=== PATIENT | male | born 1945 | race Caucasian/White ===

== ENCOUNTER → 2017-05-15 | Outpatient (CLI) | payer BC ==
--- NOTE | 2017-05-15 11:45 | DIAGNOSTIC IMAGING REPORT ---
CHEST 2 VIEWS ROUTINE CLINICAL HISTORY: Cough, shortness of breath. COMPARISON STUDY: No previous studies for comparison. FINDINGS: The cardiac and mediastinal contours are normal. There is no focal pulmonary consolidation. There is no failure. There are no pleural effusions.[ IMPRESSION: No active disease in the chest. Electronically signed by: Emile Benton M.D. 05/15/2017 11:43 AM Dictated Date/Time: 05/15/2017 11:43 AM
== END | disposition home or self-care (01) ==
LOC: C.RAD1850 09:27
PROVIDERS: ATTEND Nurse Practitioner Family
DX: R06.02 Shortness of breath (principal); R05 Cough; J20.9 Acute bronchitis, unspecified

== ENCOUNTER 2019-07-28 00:19 | Observation (INO) ==
[2019-07-28] MEDS ORDERED: dilTIAZem HCl 5 MG/ML 5 ML VIAL IV STA (00:38)
[2019-07-28] MEDS ORDERED: dilTIAZem HCL 125 MG in DEXTROSE 5% 100 ML IV STA (00:38)
[2019-07-28 00:55] LABS: Basophils # (auto) 0.01 K/uL (0-0.2); Basophils % (auto) 0.2 %; Eosinophils # (auto) 0.12 K/uL (0-0.5); Eosinophils % (auto) 2.2 %; Hematocrit (blood only) 43.3 % (42-52); Hemoglobin 14.3 g/dL (14.0-18.0); Lymphocytes # (auto) 2.06 K/uL (1.2-3.4); Lymphocytes % (auto) 38.6 %; Mean Corpuscular Hemoglobin 29.3 pg (25-34); Mean Corpuscular Volume 88.7 fL (80-100); Mean Platelet Volume 11.3 fL (7.4-10.4); Monocytes # (auto) 0.48 K/uL (0.11-0.59); Neutrophils # (auto) 2.67 K/uL (1.4-6.5); Platelet Count 165 K/uL (130-400); RDW Coefficient of Variation 13.7 % (11.5-14.5); RDW Standard Deviation 44.8 fL (36.4-46.3); Red Blood Count 4.88 M/uL (4.7-6.1); White Blood Count 5.34 K/uL (4.8-10.8)
[2019-07-28 01:13] LABS: Alanine Aminotransferase 28 U/L (12-78); Aspartate Aminotransferase 24 U/L (15-37); BUN Creatinine Ratio 32.8 (10-20); Blood Urea Nitrogen 29 mg/dl (7-18); Calcium 9.5 mg/dl (8.5-10.1); Carbon Dioxide 30 mmol/L (21-32); Chloride 106 mmol/L (98-107); Creatinine Clr Calc Pharmacy 87.2 ml/min; Est GFR (Non-African American) 85.4; Glucose 94 mg/dl (70-99); Potassium 3.7 mmol/L (3.5-5.1); Sodium 141 mmol/L (136-145)
[2019-07-28 01:24] LABS: Albumin Globulin Ratio 1.1 (0.9-2); Alkaline Phosphatase 80 U/L (45-117); Bilirubin,Total 0.4 mg/dl (0.2-1); Globulin 3.8 gm/dl (2.5-4.0); Total Protein 7.8 gm/dl (6.4-8.2); Troponin I < 0.015 ng/ml (0-0.045)
[2019-07-28 01:36] LABS: T4 Free Thyroxine 0.98 ng/dl (0.8-1.6)
[2019-07-28] MEDS ORDERED: SODIUM CHLORIDE 0.9% 500 ML IV ONE (01:40)
[2019-07-28 03:00] LABS: Appearance Urine Clear (Clear); Bilirubin Urine Negative (Negative); Blood Urine Negative (Negative); Color Urine Yellow; Glucose Urine UA Negative (Negative); Ketones Urine Negative (Negative); Leukocyte Esterase Urine Negative (Negative); Nitrite Urine Negative (Negative); Protein Urine Negative (Negative); Specific Gravity Urine 1.012 (1.000-1.030); Urobilinogen Urine Negative (Negative)
--- NOTE | 2019-07-28 03:06 | History & Physical Report ---
Date of Service July 28, 2019 Assessment & Plan (1) Atrial fibrillation with RVR: Patient is a pleasant 73-year-old male with a significant PMH of BPH and hip pain, admitted with new onset A. fib with RVR New afib/RVR -Admit to telemetry -Will convert diltiazem drip to p.o. Cardizem -In light of forthcoming surgery, will consult cardiologyappreciate recommendations. -Echo ordered -We will replete with 40 of PO potassium to obtain a goal K+ of >4.0. -[id number] score of 1 due to age, therefore will add aspirin to daily regimen. However, recommend discussion between day team and patient regarding further anticoagulation, especially in light of upcoming surgery. -Will trend troponins x 24 hours Enlarged prostate -Continue home tamsulosin -Outpatient follow up, consider increasing dose in light of continued symptoms -UA negative. Mild elevation of TSH, normal T4 -Recommend routine outpatient f/u with PCP. Code: Full Dispo: admit to tele DVTP: loveilanx (2) Enlarged prostate: History of Present Illness Chief Complaint: Afib with RVR Primary Care Provider: Oswald Dooley MD Patient is a pleasant 73-year-old male with a significant PMH of BPH and hip pain, who presents with new onset A. fib with RVR. Patient notes he woke up in the middle of the night tonight to urinate and he felt his heart was beating very quickly. He took his pulse and noted that it felt irregular. He woke up his who took a set of vitals and noted that his blood pressure was elevated as was his heart rate. He denies any lightheadedness, dizziness, numbness, tingling, weakness in his limbs, or headache during this episode overnight tonight. He notes he has no history of irregular heart rate in his past, however he notes 2 nights ago when waking up to urinate he felt a similar sensation of palpitations, but after taking some deep breaths he was able to fall back asleep and was not bothered by it. Of note, patient is scheduled for hip surgery in 1 week. He notes that he generally sleeps okay however due to his urinary frequency due to his prostate problems as well as his hip pain he is frequently waking up. He notes he drinks 3 cups of half-caf coffee per day.He notes no change to his diet recently aside from trying to increase the amount of protein he takes--this is just within the last day as his surgeon felt his lab work showed a low protein level. He denies any anemia. He does relay that there is a positive family history of atrial fibrillation in his mother who of a CVA at the age of 79. In the ER, he was found to be in atrial fibrillation with heart rates in the 140s. He was also found to have an elevated BP as high as 188/106. Labwork in the ER found a normal CBC, relatively normal BMP including a potassium level of 3.7, a magnesium level of 2.0, and a relatively elevated BUN of 29. In light of his urinary frequency, a UA was obtained and was normal. He was also noted to have a mildly elevated TSH with a normal free T4. In the ER, he was placed on a Cardizem drip and his heart rate and blood pressure responded well. Allergies Allergy/AdvReac Type Severity Reaction Status Date / Time No Known Allergies Allergy Unverified 07/28/19 01:49 Home Medications Home Medications Medication Instructions Recorded Confirmed Type acetaminophen [Tylenol Extra 1,000 mg PO Q6H PRN 07/28/19 07/28/19 History Strength] cholecalciferol (vitamin D3) 2,000 unit PO DAILY 07/28/19 07/28/19 History [Vitamin D3] docusate sodium [Colace] 100 mg PO BID PRN 07/28/19 07/28/19 History ibuprofen 400 mg PO QID PRN 07/28/19 07/28/19 History naproxen sodium [Aleve] 220 mg PO Q12H PRN 07/28/19 07/28/19 History tamsulosin 0.4 mg PO QAM 07/28/19 07/28/19 History Past Med/Surg History Medical History Enlarged prostate Family History Mother Stroke Atrial fibrillation Other No significant family history Social History Preferred Language: Slovenian Communication Ability: Effective Drama Therapist Required: No Beliefs That Will Affect Care: None Current Living Situation: Spouse Feels Safe at Home: Yes Safety Concerns: Feels Safe At This Time Smoking Status: Never smoker Hx Alcohol Use: Yes Hx Substance Use: No Review of Systems Review of Systems: All systems reviewed & are unremarkable except as noted in HPI & below Constitutional: no fever, no body aches, no fatigue and no weakness Respiratory: no cough and no dyspnea Cardiovascular: + palpitations (Resolved); no chest pain, no dyspnea, no lightheadedness, no syncope and no edema Gastrointestinal: + constipation; no abdominal pain Genitourinary: + urinary frequency, + post-void dribbling and + nocturia Musculoskeletal: + joint pain (Hip pain) Physical Exam Constitutional: WD/WN, vitals as above average body habitus Eyes: PERRL, conjunctivae normal, anicteric sclerae ENMT: external ear and nose normal, oropharynx normal Neck: normal visual inspection Respiratory: normal respiratory effort, lungs clear to auscultation Cardiovascular: Rate/Rhythm: regular rate; + abnormal rhythm (Irreg/irreg) Heart Sounds: no murmur Extremities: no edema Gastrointestinal (Abdomen): normal bowel sounds, soft, nontender, no hepatosplenomegaly Musculoskeletal: no cyanosis or clubbing, extremities motor strength 5/5 Skin: no rashes, warm and dry Neurologic: PERRL, EOMI, accommodation nl, no face palsy, no dysarthria Psychiatric: A+Ox3, euthymic affect Results & Data Vital Signs (Past 12 Hours) Vital Signs Temp Pulse Pulse Resp BP BP Pulse Ox 07/28/19 02:50 89 18 121/81 96 07/28/19 02:07 86 20 132/95 95 07/28/19 01:48 91 H 18 120/76 95 07/28/19 01:26 83 18 126/77 95 07/28/19 01:11 78 18 111/66 96 07/28/19 01:04 90 18 141/77 H 96 07/28/19 00:33 98 07/28/19 00:32 123 H 18 162/114 H 98 07/28/19 00:21 97.9 F 137 H 18 155/87 H 98 Laboratory Results 07/28/19 07/28/19 07/28/19 Range/Units 02:51 00:35 00:35 WBC 5.34 (4.8-10.8) K/uL RBC 4.88 (4.7-6.1) M/uL Hgb 14.3 (14.0-18.0) g/dL Hct 43.3 (42-52) % MCV 88.7 (80-100) fL MCH 29.3 (25-34) pg MCHC 33.0 (32-36) g/dL RDW Std Deviation 44.8 (36.4-46.3) fL RDW Coeff of Amanda 13.7 (11.5-14.5) % Plt Count 165 (130-400) K/uL MPV 11.3 H (7.4-10.4) fL Immature Gran % (Auto) 0.0 % Neut % (Auto) 50.0 % Lymph % (Auto) 38.6 % [place] % (Auto) 9.0 % Eos % (Auto) 2.2 % Baso % (Auto) 0.2 % Immature Gran # (Auto) 0.00 (0.00-0.02) K/uL Neut # (Auto) 2.67 (1.4-6.5) K/uL Lymph # (Auto) 2.06 (1.2-3.4) K/uL [place] # (Auto) 0.48 (0.11-0.59) K/uL Eos # (Auto) 0.12 (0-0.5) K/uL Baso # (Auto) 0.01 (0-0.2) K/uL Sodium 141 (136-145) mmol/L Potassium 3.7 (3.5-5.1) mmol/L Chloride 106 (98-107) mmol/L Carbon Dioxide 30 (21-32) mmol/L Anion Gap 5.0 (3-11) BUN 29 H (7-18) mg/dl Creatinine 0.89 (0.6-1.4) mg/dl Est Cr Clr Drug Dosing 87.2 ml/min Est GFR ( Amer) 99.0 Est GFR (Non-Af Amer) 85.4 BUN/Creatinine Ratio 32.8 H (10-20) Glucose 94 (70-99) mg/dl Calcium 9.5 (8.5-10.1) mg/dl Magnesium 2.0 (1.8-2.4) mg/dl Total Bilirubin 0.4 (0.2-1) mg/dl AST 24 (15-37) U/L ALT 28 (12-78) U/L Alkaline Phosphatase 80 (45-117) U/L Troponin I < 0.015 (0-0.045) ng/ml Total Protein 7.8 (6.4-8.2) gm/dl Albumin 4.0 (3.4-5.0) gm/dl Globulin 3.8 (2.5-4.0) gm/dl Albumin/Globulin Ratio 1.1 (0.9-2) TSH 4.980 H (0.300-4.500) uIu/ml Free T4 0.98 (0.8-1.6) ng/dl Urine Color Yellow Urine Appearance Clear (Clear) Urine pH 8.0 H (4.5-7.5) Ur Specific [place] 1.012 (1.000-1.030) Urine Protein Negative (Negative) Urine Glucose (UA) Negative (Negative) Urine Ketones Negative (Negative) Urine Blood Negative (Negative) Urine Nitrite Negative (Negative) Urine Bilirubin Negative (Negative) Urine Urobilinogen Negative (Negative) Ur Leukocyte Esterase Negative (Negative) Code Status & VTE Plan Code Status Full VTE Prophylaxis Plan VTE Prophylaxis will be ordered: Yes Supervising Physician Co-Signing Physician Notes Attending addendum: I have physically seen this patient, have supervised the medical residents activities, and agree with the H&P unless as otherwise noted. Assessment and Plan: New onset atrial fibrillation with rapid ventricular response- The patient will be admitted to telemetry for serial cardiac enzymes, serial EKG's, cardiac rhythm monitoring and a 2-D echocardiogram with Dopplers. Given diltiazem 5 mg IV, and then started on diltiazem drip at 5 mg/h by ED. Try to pattern changer to oral Cardizem. Potassium 3.7 upon admission, will optimize with 40 mEq KCL po. Family history significant for mother having atrial fibrillation, and later had a CVA in her late 70s. Low risk for stroke based on scoring, and would likely be a long-term aspirin candidate. Patient is due to undergo total hip arthroplasty at [facility] in 1 week. Complete preoperative assessment with cardiology consultation today. Remaining orders and notations as noted. Resident Activity Tracking Resident Involvement: Resident Care Provided Care Provided: [facility] Medicine
[2019-07-28] MEDS ORDERED: ALUMINUM/MAGNESIUM SUSP 30 ML UDC PO PRN (03:35)
[2019-07-28] MEDS ORDERED: ONDANSETRON INJ 2 MG/ML 2 ML VIAL IV PRN (03:35)
[2019-07-28] MEDS ORDERED: MAGNESIUM HYDROXIDE SUSP 30 ML UDC PO PRN (03:35)
[2019-07-28] MEDS ORDERED: ACETAMINOPHEN 325 MG TAB PO PRN (03:35)
[2019-07-28] MEDS ORDERED: POTASSIUM CHLORIDE 20 MEQ TABCR PO STA (03:35)
[2019-07-28] MEDS ORDERED: Nursing to Pharmacy Communication ONE (04:30)
[2019-07-28] MEDS: dilTIAZem HCL 30 MG TAB PO SCH ×2 (04:40→12:06)
--- NOTE | 2019-07-28 05:04 | Emergency Department Note ---
Entered by Fernando Erazo acting as a scribe for Lorraine Ren DO History of Present Illness General Chief complaint: Arrhythmia/Palpitations Stated complaint: RAPID IRREGULAR HEART BEAT Time Seen by Provider: 07/28/19 00:26 Source: patient History of Present Illness Onset (ago): day(s) (this morning) Location: chest Pain Consistency: + constant Quality: + other (palpitations) Associated symptoms: + other (Negative for nausea, SOB, abdominal pain, leg swelling, dizziness, and a high blood pressure.) The patient is a 73 year old male who presents to the emergency department with complaints of constant palpitations beginning this morning. The patient states that he woke up this morning with palpitations. He notes that his watch said that his heart rate was 120. He reports that his blood pressure was 148/91 which is high for him. The patient states that he had a similar episode a few days ago which resolved on its own. He denies any nausea, SOB, abdominal pain, leg sw elling, and dizziness. He notes that he has been eating and drinking as usual. He reports that he has a left hip replacement scheduled for next week, and he states that he has an enlarged prostate. Home Medications Home Medications Medication Instructions Recorded Confirmed Type acetaminophen [Tylenol Extra 1,000 mg PO Q6H PRN 07/28/19 07/28/19 History Strength] cholecalciferol (vitamin D3) 2,000 unit PO DAILY 07/28/19 07/28/19 History [Vitamin D3] docusate sodium [Colace] 100 mg PO BID PRN 07/28/19 07/28/19 History ibuprofen 400 mg PO QID PRN 07/28/19 07/28/19 History naproxen sodium [Aleve] 220 mg PO Q12H PRN 07/28/19 07/28/19 History tamsulosin 0.4 mg PO QAM 07/28/19 07/28/19 History Allergies Allergy/AdvReac Type Severity Reaction Status Date / Time No Known Allergies Allergy Unverified 07/28/19 01:49 Past Med/Surg History Medical History Enlarged prostate Family History Mother Stroke Atrial fibrillation Other No significant family history Social History Preferred Language: French Communication Ability: Effective Cemetery Warden Required: No Beliefs That Will Affect Care: None Current Living Situation: Spouse Feels Safe at Home: Yes Safety Concerns: Feels Safe At This Time Smoking Status: Never smoker Hx Alcohol Use: Yes Hx Substance Use: No Review of Systems See HPI for pertinent positives & negatives. and A total of 10 systems reviewed and were otherwise negative Physical Exam Vital Signs Vital Signs - 24 hr 07/28/19 00:21 07/28/19 00:32 07/28/19 00:33 Temperature 36.6 C Temperature Source Oral Pulse Rate 137 H Pulse Rate [Bilateral Apical] 123 H Respiratory Rate 18 18 Respiratory Effort / Characteristics Non-Labored Spontaneous Non-Labored Respiratory Depth Normal Normal Blood Pressure 155/87 H Blood Pressure [Left Arm] 162/114 H Blood Pressure Mean 109 Blood Pressure Mean [Left Arm] 130 Blood Pressure Position [Left Arm] Sitting Pulse Oximetry 98 98 98 Oxygen Delivery Method Room Air Room Air Room Air Sepsis Recent Fever Within 48 Hours No Sepsis Action Taken by Nursing No Action Required 07/28/19 01:04 07/28/19 01:11 07/28/19 01:26 Temperature Temperature Source Pulse Rate Pulse Rate [Bilateral Apical] 90 78 83 Respiratory Rate 18 18 18 Respiratory Effort / Characteristics Non-Labored Non-Labored Spontaneous Respiratory Depth Normal Normal Blood Pressure Blood Pressure [Left Arm] 141/77 H 111/66 126/77 Blood Pressure Mean Blood Pressure Mean [Left Arm] 98 81 93 Blood Pressure Position [Left Arm] Sitting Pulse Oximetry 96 96 95 Oxygen Delivery Method Room Air Room Air Room Air Sepsis Recent Fever Within 48 Hours Sepsis Action Taken by Nursing 07/28/19 01:48 07/28/19 02:07 Temperature Temperature Source Pulse Rate Pulse Rate [Bilateral Apical] 91 H 86 Respiratory Rate 18 20 Respiratory Effort / Characteristics Respiratory Depth Blood Pressure Blood Pressure [Left Arm] 120/76 132/95 Blood Pressure Mean Blood Pressure Mean [Left Arm] 90 107 Blood Pressure Position [Left Arm] Pulse Oximetry 95 95 Oxygen Delivery Method Room Air Room Air Sepsis Recent Fever Within 48 Hours Sepsis Action Taken by Nursing HEENT: Head - normocephalic and atraumatic Pupils are equal, round, and reactive to light. Extraocular eye muscles are intact, and sclera are anicteric. Nose - moist nasal mucosa without discharge. Mouth - moist buccal mucosa. Oropharynx is nonerythematous and there is no tonsillar exudate or edema noted. Neck: Supple; no JVD, nuchal rigidity, cervical lymphadenopathy, or auscultated bruits. Heart: Irregularly irregular and tachycardic. There is a normal S1 and S2 with no murmurs, clicks, or gallops appreciated. Lungs: Clear to auscultation bilaterally with no wheezes, rales, or rhonchi. Abdomen: Soft, completely nontender, nondistended, with good bowel sounds. There are no palpable pulsatile masses or hepatosplenomegaly. There is no guarding, rigidity, or rebound noted. Extremities: No evidence of cyanosis, clubbing, or edema. There are easily palpable peripheral pulses. Skin: warm and dry with good turgor and no rashes. Course Course 0031: The patient was evaluated in room B2. A complete history and physical examination were performed. Nursing notes and previous electronic medical records were reviewed. IV lock was established and labs were drawn as above. The patient was observed on the shelter monitor with a tachycardic rate in A. fib. 0059: Diltiazem HCL 5mg IV drip was initiated 0111: I reevaluated and updated the patient. He is doing well. His heart rate is down in the 80s but still irregular. His blood pressure is stable. 0139: I rechecked the patient. His heart rate is still in the 80s. Nursing will get another 12 lead EKG. The patient is symptom free. 0149: Sodium Chloride 500 mls @ 999 mls/hr IV 0157: Upon reevaluation, the patient is stable. I discussed the findings and the treatment plan with the patient and his . They express agreement and understanding. I spoke with Dr. Colón of the [facility] Hospitalist Service. The patient will be evaluated for further management. Consultations Consultation #1: I reviewed the patient's case with Dr. Colón - Hospitalist, [facility]. He will evaluate the patient for further management. Time: 01:57 Administered Medications Diltiazem HCl (Cardizem) 30 mg PO TID RADHA Stop: 08/27/19 03:34 Last Admin: 07/28/19 04:40 Dose: 30 mg Documented by: [id number] Discontinued Medications Diltiazem HCl (Cardizem) 5 mg IV NOW STA Stop: 07/28/19 00:39 Last Admin: 07/28/19 00:59 Dose: 5 mg Documented by: [id number] Cosigned by: [id number] Diltiazem HCl 125 mg/ Dextrose 125 mls @ 5 mls/hr IV .Q24H STA; Protocol Stop: 07/29/19 00:37 Last Titration: 07/28/19 04:51 Dose: 0 mg/hr, 0 mls/hr Documented by: [id number] Cosigned by: [id number] Admin: 07/28/19 00:59 Dose: 5 mg/hr, 5 mls/hr Documented by: [id number] Cosigned by: [id number] Sodium Chloride (Nss) 500 mls @ 999 mls/hr IV .Q31M ONE Stop: 07/28/19 02:10 Last Infusion: 07/28/19 02:23 Dose: 0 mls/hr Documented by: [id number] Admin: 07/28/19 01:49 Dose: 999 mls/hr Documented by: [id number] Potassium Chloride (Klor-Con M20) 40 meq PO NOW STA Stop: 07/28/19 03:36 Last Admin: 07/28/19 04:40 Dose: 40 meq Documented by: [id number] Critical Care Time Critical Care Time: Yes Total Critical Care Time: 40 I have personally spent 40 minutes of critical care time in the direct ma nagement of this patient. This includes bedside care, interpretation of diagnostic studies, and testing, discussion with consultants, patient, and family members, and other required patient management activities. This 40 minutes is in excess of all separately billable procedures. Medical Decision Making Differential Diagnosis Differential diagnoses include: cardiac dysrhythmia, electrolyte abnormalities, thyroid dysfunction, and cardiac ischemia. Medical Records Attestation: I reviewed the patient's medical records. Home Medications Current Medication List: was personally reviewed by me Laboratory Data Attestation: I reviewed the patient's lab results. Result diagrams: 07/28/19 00:35 07/28/19 00:35 Lab Results 07/28/19 07/28/19 Range/Units 00:35 00:35 WBC 5.34 (4.8-10.8) K/uL RBC 4.88 (4.7-6.1) M/uL Hgb 14.3 (14.0-18.0) g/dL Hct 43.3 (42-52) % MCV 88.7 (80-100) fL MCH 29.3 (25-34) pg MCHC 33.0 (32-36) g/dL RDW Std Deviation 44.8 (36.4-46.3) fL RDW Coeff of Amanda 13.7 (11.5-14.5) % Plt Count 165 (130-400) K/uL MPV 11.3 H (7.4-10.4) fL Immature Gran % (Auto) 0.0 % Neut % (Auto) 50.0 % Lymph % (Auto) 38.6 % [place] % (Auto) 9.0 % Eos % (Auto) 2.2 % Baso % (Auto) 0.2 % Immature Gran # (Auto) 0.00 (0.00-0.02) K/uL Neut # (Auto) 2.67 (1.4-6.5) K/uL Lymph # (Auto) 2.06 (1.2-3.4) K/uL [place] # (Auto) 0.48 (0.11-0.59) K/uL Eos # (Auto) 0.12 (0-0.5) K/uL Baso # (Auto) 0.01 (0-0.2) K/uL Sodium 141 (136-145) mmol/L Potassium 3.7 (3.5-5.1) mmol/L Chloride 106 (98-107) mmol/L Carbon Dioxide 30 (21-32) mmol/L Anion Gap 5.0 (3-11) BUN 29 H (7-18) mg/dl Creatinine 0.89 (0.6-1.4) mg/dl Est Cr Clr Drug Dosing 87.2 ml/min Est GFR ( Amer) 99.0 Est GFR (Non-Af Amer) 85.4 BUN/Creatinine Ratio 32.8 H (10-20) Glucose 94 (70-99) mg/dl Calcium 9.5 (8.5-10.1) mg/dl Magnesium 2.0 (1.8-2.4) mg/dl Total Bilirubin 0.4 (0.2-1) mg/dl AST 24 (15-37) U/L ALT 28 (12-78) U/L Alkaline Phosphatase 80 (45-117) U/L Troponin I < 0.015 (0-0.045) ng/ml Total Protein 7.8 (6.4-8.2) gm/dl Albumin 4.0 (3.4-5.0) gm/dl Globulin 3.8 (2.5-4.0) gm/dl Albumin/Globulin Ratio 1.1 (0.9-2) TSH 4.980 H (0.300-4.500) uIu/ml Free T4 0.98 (0.8-1.6) ng/dl Imaging Data Attestation: I personally reviewed and interpreted this imaging study as follows: My Impression: 1 VIEW CHEST X-RAY: No cardiomegaly. Narrow mediastinum. No pulmonary pathology. ECG Data Attestation: I personally reviewed and interpreted this ECG as follows: Indication: + palpitations Rate (beats per minute): 115 Rhythm: + atrial fibrillation (with RVR) ECG ST segments: no ST depression and no ST elevation ECG Findings: no PACs and no PVCs Additional Comments: EKG 2: Afib, 80, no ischemia, no ectopy. Blood Pressure Blood Pressure Findings: Normal blood pressure Blood Pressure Disposition: did not require urgent referral MDM Narrative The patient is a 73 year old male who presents to the emergency department with complaints of constant palpitations occurring this morning. The patient checked his blood pressure and pulse at home and found them to be elevated. His brought him here to the emergency department. Patient was found to be hypertensive and tachycardic. He was in A. fib with rapid ventricular response. He was placed on a Cardizem drip which lowered his blood pressure and heart rate nicely. However, the patient remains in atrial fibrillation. The patient had an elevated TSH and an elevated BUN which was concerning for dehydration. He was bolused with IV normal saline solution. Patient's heart rate and blood pressure came down nicely on the IV Cardizem drip. He remains hemodynamically stable. Impression & Plan Atrial fibrillation with RVR, Dehydration, Elevated TSH Discharge Plan Visit Data *Final* Discharge Date/Time: 07/28/19 03:32 Chief Complaint: Arrhythmia/Palpitations Stated Complaint: RAPID IRREGULAR HEART BEAT ED Provider: Lorraine Ren Discharge Problem: Atrial fibrillation with RVR, Dehydration, Elevated TSH Patient Disposition: Admitted As Inpatient Discharge Instructions Interventions: ED Discharge Assessment Last Done: 07/28/19 03:32 The scribe's documentation has been prepared under my direction and personally reviewed by me in its entirety. I confirm that the note above accurately reflects all work, treatment, procedures, and medical decision making performed by me.
--- NOTE | 2019-07-28 05:11 | Billing Data ---
Coding Level of Care Code 10113 Initial Inpt Care Lvl 3
[2019-07-28 07:40] LABS: Albumin Level 3.3 gm/dl (3.4-5.0); Calcium 9.1 mg/dl (8.5-10.1); Creatinine Clr Calc Pharmacy 102.1 ml/min; Est GFR (African American) 105.6; Est GFR (Non-African American) 91.1
[2019-07-28 07:42] LABS: Bilirubin,Total 0.5 mg/dl (0.2-1); Globulin 3.3 gm/dl (2.5-4.0); Total Protein 6.6 gm/dl (6.4-8.2)
--- NOTE | 2019-07-28 07:52 | XRay Report ---
XR chest 1V portable HISTORY: Atrial fibrillation. COMPARISON: Chest 05/15/2017. FINDINGS: No pneumothorax. No pleural effusions. The heart is normal in size. No focal lung consolida tions to suggest pneumonia. No evidence for pulmonary edema. IMPRESSION: No acute process. Electronically signed by: Cody Peterson M.D. 07/28/2019 7:50 AM
[2019-07-28] MEDS ORDERED: ENOXAPARIN INJ 40 MG/0.4 ML SYR SQ SCH (08:00)
[2019-07-28] MEDS ORDERED: ASPIRIN 81 MG ECTAB PO SCH (09:00)
[2019-07-28] MEDS ORDERED: TAMSULOSIN HCL 0.4 MG CAP PO SCH (09:00)
--- NOTE | 2019-07-28 11:59 | Cardiology Consultation ---
Date of Consultation July 28, 2019 Assessment & Plan (1) Atrial fibrillation with RVR: Patient documented atrial fibrillation and associated high ventricular rates. While he was aware of a high heart rate and some irregularity, he did not have other symptoms. There is no evidence of ischemia. The etiology of his atrial fibrillation is likely age related given the absence of other risk factors. There is a possibility has some occult sleep apnea, but he does not appear to be high risk for that problem either. He is very minor thyroid abnormalities which are not contributory to his atrial fibrillation. He did not endorse recent significant alcohol intake. Given how well tolerated the episode was and the absence of any inciting event, I do not believe he requires any outpatient medication on a daily basis. He could very easily go many months or even years without another episode. However, if he continues to have episodes in I frequency, he would likely benefit from daily medication such as flecainide. He did inquire about something to take if he has an episode of atrial fibrillation. Given his structurally normal heart and absence of symptoms consistent with ischemic heart disease I think would be safe for him to take a pill in the pocket flecainide. 300 milligrams of flecainide at the onset of his atrial fibrillation may shorten his episode. We did discuss anticoagulation. He appears to be a chads Vasc 1, which puts him in a category patient is at very low risk for stroke. However, I did recommend systemic anticoagulation. He will consider starting anticoagulation once his surgery is complete in 1 week. I do not believe he requires a daily aspirin. Present on Admission?: Yes History of Present Illness Reason for Consultation: Atrial fibrillation Requesting Physician: Fatimah Attending Physician: Tena Sheridan MD History of Present Illness The patient is a 73-year-old gentleman without a known history of cardiac disease who experienced an episode of palpitations 2 nights ago. That is that of palpitations with very brief. He did not produce additional symptoms and the patient did not seek any additional tension. However, last evening the patient was ambulating to the bathroom when he notices heart began to race. Did not notice specific irregularity but noticed that the heart rate was high. He also has a where bbl device which told his heart rate was high. He denied any symptoms dizziness, lightheadedness, presyncope, shortness of breath or chest pain. However, based on his high heart rate he sought medical attention. He was discovered to have atrial fibrillation and high ventricular rates. He was started on diltiazem and admitted for observation. This morning he converted back to normal sinus rhythm. Currently he is feeling well. He is an active individual but is currently limited by hip discomfort. He is actually scheduled for hip surgery in 1 week. He continues to maintain a good level of activity in the past could perform vigorous activity without any symptoms ischemic heart disease. Allergies Allergy/AdvReac Type Severity Reaction Status Date / Time No Known Allergies Allergy Unverified 07/28/19 01:49 Home Medications Home Medications Medication Instructions Recorded Confirmed Type acetaminophen [Tylenol Extra 1,000 mg PO Q6H PRN 07/28/19 07/28/19 History Strength] cholecalciferol (vitamin D3) 2,000 unit PO DAILY 07/28/19 07/28/19 History [Vitamin D3] docusate sodium [Colace] 100 mg PO BID PRN 07/28/19 07/28/19 History ibuprofen 400 mg PO QID PRN 07/28/19 07/28/19 History naproxen sodium [Aleve] 220 mg PO Q12H PRN 07/28/19 07/28/19 History tamsulosin 0.4 mg PO QAM 07/28/19 07/28/19 History Patient History Medical History Enlarged prostate Family History Mother Stroke Atrial fibrillation Other No significant family history Social History Preferred Language: Guinean Communication Ability: Effective 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 She did not report any snoring although he does use a breathe right strip at night. No heavy alcohol use recently. Chronic hip pain. No lower extremity edema. Physical Exam Physical Exam: The patient is alert and oriented. Mood and affect appeared normal. He answered all questions appropriately. HEENT: Pupils are equal and reactive to light and accommodation. Extraocular movements are intact. The sclerae are anicteric. Neuro: Cranial nerves intact Neck: Patient's neck is supple. He has palpable carotid pulses bilaterally without bruits on auscultation. There is no evidence of jugular venous distention. The thyroid is not enlarged. Lungs: Clear to auscultation bilaterally. He has good air movement without use of accessory muscles. No rales wheezes or rhonchi. Cardiac: Heart demonstrates a regular rate and rhythm. Normal S1 and S2. No murmurs on examination. Pulses: The patient has palpable radial pulses bilaterally that are equal in intensity Extremities: There was no evidence of hypoperfusion. There is no cyanosis or clubbing. There is no edema. Skin: I did not appreciate any rashes on examination today. Results & Data Vital Signs (Past 12 Hours) Vital Signs Temp Pulse Pulse Resp BP BP Pulse Ox 07/28/19 09:29 75 07/28/19 08:08 36.8 C 115 H 18 132/79 93 07/28/19 03:42 36.5 C 110 H 18 141/79 H 96 07/28/19 03:10 88 18 126/83 96 07/28/19 02:50 89 18 121/81 96 07/28/19 02:07 86 20 132/95 95 07/28/19 01:48 91 H 18 120/76 95 07/28/19 01:26 83 18 126/77 95 07/28/19 01:11 78 18 111/66 96 07/28/19 01:04 90 18 141/77 H 96 07/28/19 00:33 98 07/28/19 00:32 123 H 18 162/114 H 98 07/28/19 00:21 36.6 C 137 H 18 155/87 H 98 Laboratory Results Abnormal Lab Results 07/28/19 07/28/19 07/28/19 00:35 00:35 02:51 WBC 5.34 RBC 4.88 Hgb 14.3 Hct 43.3 MCV 88.7 MCH 29.3 MCHC 33.0 RDW Std Deviation 44.8 RDW Coeff of Amanda 13.7 Plt Count 165 MPV 11.3 H Immature Gran % (Auto) 0.0 Neut % (Auto) 50.0 Lymph % (Auto) 38.6 Mcculloch % (Auto) 9.0 Eos % (Auto) 2.2 Baso % (Auto) 0.2 Immature Gran # (Auto) 0.00 Neut # (Auto) 2.67 Lymph # (Auto) 2.06 Mcculloch # (Auto) 0.48 Eos # (Auto) 0.12 Baso # (Auto) 0.01 Sodium 141 Potassium 3.7 Chloride 106 Carbon Dioxide 30 Anion Gap 5.0 BUN 29 H Creatinine 0.89 Est Cr Clr Drug Dosing 87.2 Est GFR ( Amer) 99.0 Est GFR (Non-Af Amer) 85.4 BUN/Creatinine Ratio 32.8 H Glucose 94 Calcium 9.5 Magnesium 2.0 Total Bilirubin 0.4 AST 24 ALT 28 Alkaline Phosphatase 80 Troponin I < 0.015 Total Protein 7.8 Albumin 4.0 Globulin 3.8 Albumin/Globulin Ratio 1.1 TSH 4.980 H Free T4 0.98 Urine Color Yellow Urine Appearance Clear Urine pH 8.0 H Ur Specific [place] 1.012 Urine Protein Negative Urine Glucose (UA) Negative Urine Ketones Negative Urine Blood Negative Urine Nitrite Negative Urine Bilirubin Negative Urine Urobilinogen Negative Ur Leukocyte Esterase Negative 07/28/19 07/28/19 06:39 06:39 WBC RBC Hgb Hct MCV MCH MCHC RDW Std Deviation RDW Coeff of Amanda Plt Count MPV Immature Gran % (Auto) Neut % (Auto) Lymph % (Auto) Mcculloch % (Auto) Eos % (Auto) Baso % (Auto) Immature Gran # (Auto) Neut # (Auto) Lymph # (Auto) Mcculloch # (Auto) Eos # (Auto) Baso # (Auto) Sodium 141 Potassium 4.0 Chloride 108 H Carbon Dioxide 29 Anion Gap 4.0 BUN 24 H Creatinine 0.76 Est Cr Clr Drug Dosing 102.1 Est GFR ( Amer) 105.6 Est GFR (Non-Af Amer) 91.1 BUN/Creatinine Ratio 32.0 H Glucose 95 Calcium 9.1 Magnesium Total Bilirubin 0.5 AST 20 ALT 21 Alkaline Phosphatase 58 Troponin I < 0.015 Total Protein 6.6 Albumin 3.3 L Globulin 3.3 Albumin/Globulin Ratio 1.0 TSH Free T4 Urine Color Urine Appearance Urine pH Ur Specific [place] Urine Protein Urine Glucose (UA) Urine Ketones Urine Blood Urine Nitrite Urine Bilirubin Urine Urobilinogen Ur Leukocyte Esterase Diagnostic Findings Chest x-ray obtained at the time admission not be any acute cardiopulmonary process. Echocardiogram obtained today revealed essentially normal LV function without valvular heart disease. Normal chamber dimensions. ECG Additional Comments: EKG at the time admission revealed atrial fibrillation and high ventricular rates. PG Care Time/CCT Total # of Minutes Spent Total Time Spent with Patient: Total time spent is greater than 50% in coordination of care (as documented) at patient's floor/unit and/or counseling patient:
--- NOTE | 2019-07-28 13:38 | Discharge Summary ---
Date of Service July 28, 2019 Admission HPI Per Admitting Provider Patient is a pleasant 73-year-old male with a significant PMH of BPH and hip pain, who presents with new onset A. fib with RVR. Patient notes he woke up in the middle of the night tonight to urinate and he felt his heart was beating very quickly. He took his pulse and noted that it felt irregular. He woke up his who took a set of vitals and noted that his blood pressure was elevated as was his heart rate. He denies any lightheadedness, dizziness, numbness, tingling, weakness in his limbs, or headache during this episode overnight tonight. He notes he has no history of irregular heart rate in his past, however he notes 2 nights ago when waking up to urinate he felt a similar sensation of palpitations, but after taking some deep breaths he was able to fall back asleep and was not bothered by it. Of note, patient is scheduled for hip surgery in 1 week. He notes that he generally sleeps okay however due to his urinary frequency due to his prostate problems as well as his hip pain he is frequently waking up. He notes he drinks 3 cups of half-caf coffee per day.He notes no change to his diet recently aside from trying to increase the amount of protein he takes--this is just within the last day as his surgeon felt his lab work showed a low protein level. He denies any anemia. He does relay that there is a positive family history of atrial fibrillation in his mother who of a CVA at the age of 79. In the ER, he was found to be in atrial fibrillation with heart rates in the 140s. He was also found to have an elevated BP as high as 188/106. Labwork in the ER found a normal CBC, relatively normal BMP including a potassium level of 3.7, a magnesium level of 2.0, and a relatively elevated BUN of 29. In light of his urinary frequency, a UA was obtained and was normal. He was also noted to have a mildly elevated TSH with a normal free T4. In the ER, he was placed on a Cardizem drip and his heart rate and blood pressure responded well. Principal Diagnosis Rapid atrial fibrillation Discharge Exam Constitutional WD/WN, vitals as above Eyes PERRL, conjunctivae normal, anicteric sclerae ENMT external ear and nose normal, oropharynx normal Neck trachea midline, no thyromegaly Respiratory normal respiratory effort, lungs clear to auscultation Cardiovascular RRR, no murmur, no edema Chest (Breasts) Chest: normal inspection of chest Gastrointestinal (Abdomen) normal bowel sounds, soft, nontender, no hepatosplenomegaly Musculoskeletal Extremities: extremities normal to inspection; no cyanosis and no clubbing Skin no rashes, warm and dry Neurologic moves all extremities and awake; no focal motor deficits Psychiatric A+Ox3, euthymic affect Lymphatic no lymphedema Discharge Data Allergies Allergy/AdvReac Type Severity Reaction Status Date / Time No Known Allergies Allergy Unverified 07/28/19 01:49 Consultations 07/28/19 01:41 ED Decision to Admit Stat 07/28/19 03:35 Consult Cardiology Routine Ordered Studies Echocardiogram CXR Hospital Course (1) Atrial fibrillation with RVR: Patient is a pleasant 73-year-old male with a significant PMH of BPH and hip pain, admitted with new onset A. fib with RVR New afib/RVR-symptomatic with palpitations but otherwise no signs of ischemia, tolerated rates in the 160s for a while without symptoms. ECHO without structural abnormality or valvular disease. Spontaneously converted to NSR Was initially on Cardizem gtt and then converted to po diltiazem but Cardiology does not feel he needs medication for rate control on discharge -repleted with 40 of PO potassium to obtain a goal K+ of >4.0. -[id number] score of 1 due to age, Cardiology thinks he still should have systemic anticoagulation, but it can be started after his upcoming hip surgery. Pt wishes to think this over prior to starting and he can follow up with Cardiology after discharge. He was given a "pill in the pocket" dose of flecainide to take 300mg po x 1 at start of any future recurrence Enlarged prostate -Continue home tamsulosin -Outpatient follow up, consider increasing dose in light of continued symptoms -UA negative for infection Mild elevation of TSH, normal T4 -Recommend routine outpatient f/u with PCP. Check TFTs agin in 4-6 wees Code: Full Dispo: stable for dc to home DVTP: lovenox SQ was provided (2) Enlarged prostate: (3) Elevated TSH: Total Time Total Time Spent Total Time Spent (In Minutes): 35 min Total Time Includes: Examination of the Patient, Discharge Planning, Medication Reconciliation and Communication With Other Providers (Cardiology) Discharge Plan Discharge Items Patient Disposition: Home - Self-Care Reason For Visit: NEW AFIB RVR Discharge Diagnosis: New onset atrial fibrillation with rapid ventricular response Condition on Discharge: Good Health Concerns: You have been hospitalized for an acute medical problem. During your stay at [facility], we have made an effort to correct the problem that brought you to the hospital while keeping you as comfortable as possible. Medications were used to bring your condition under control and your discharge instructions will include directions for any medications you should take after leaving the hospital. Please make sure you see your Primary Care Provider as part of your follow up plan. Activity: Resume your previous activity Non-emergency contact: Primary Care Provider and Logistics System Engineer Call non-emergency contact if: you have any medication questions and your symptoms worsen Follow-up/Referrals: Giovany Castro MD [Physician] - 08/05/19 10:00 am (Please, follow up at [facility] Cardiology Office with Dr. Castro on SundayAugust 05 at 10:15 am (arrive 10:00 am). *The office is located in [address] of [facility], next to [facility]. If you need to change htis appointment, call the office at [phone].) Oswald Dooley MD [Primary Care Provider] - 08/04/19 2:10 pm (Please, follow up at Dr. Dooley's office with her associate, Aniya CHIN, on SundayAugust 04 at 2:10 pm. *If you need to change this appointment, call the office at [phone].) Diet: Regular Addtl Attending Provider Instructions: If you develop heart palpitations again and a rapid heart rate, you can wait it out at home unless you are having chest pain, shortness of breath, dizziness, or passing out. You can take a one time dose of flecainide 300mg to try to make the atrial fibrillation go away. You should at least take aspirin 81mg once daily, but if you change your mind about starting a stronger blood thinner as discussed with the Logistics System Engineer, please contact Dr. Castro's office. You can hold off on starting the aspirin and/or the stronger blood thinner until after your hip surgery next week. If the rapid heartbeat does not resolve on its own, please call the Logistics System Engineer's office or come to the ER. Pending Studies at Discharge: No Stand-Alone Forms: My [facility] Medications and DC Order Prescriptions: New acetaminophen [Mapap (acetaminophen)] 325 mg Tablet 650 mg PO Q4H PRN (Reason: pain) Qty: 30 RF: 0 flecainide 150 mg tablet 300 mg PO ONCE PRN (Reason: rapid irregular heartbeat) Qty: 10 RF: 0 Continued acetaminophen [Tylenol Extra Strength] 500 mg Tablet 1,000 mg PO Q6H PRN (Reason: Pain) RF: 0 tamsulosin 0.4 mg capsule 0.4 mg PO QAM RF: 0 naproxen sodium [Aleve] 220 mg Tablet 220 mg PO Q12H PRN (Reason: Pain) RF: 0 docusate sodium [Colace] 100 mg Capsule 100 mg PO BID PRN (Reason: Constipation) RF: 0 cholecalciferol (vitamin D3) [Vitamin D3] 2,000 unit Tablet 2,000 unit PO DAILY RF: 0 Discontinued ibuprofen 200 mg Tablet 400 mg PO QID PRN (Reason: Pain) RF: 0 Discharge Orders: Discharge Order (Routine); Ordered 07/28/19 Ordered By: Tena Sheridan Admission Data Admit Date/Time: 07/28/19 02:44 Attending Provider: Tena Sheridan Admit Provider: Chelle Roth Primary Care Provider: Oswald Dooley Other Providers: Alexander Colón ; Giovany Castro
== END 2019-07-28 14:56 | disposition home or self-care (01) ==
LOC: ED 00:19 → 2S 02:44 → INTOOBSV 02:44 → SUATTDRO 02:44 → 2S 03:32